=== PATIENT | female | born 1990 | race Caucasian/White ===

== ENCOUNTER 2023-02-24 15:58 | Outpatient (AMB) | payer OTHER, SELFPAY ==
--- NOTE | 2023-02-24 16:26 | AM.OFFWIN_ITS ---
Intake Vital Signs 02/24/23 16:33 Height 5 ft 6 in Weight 133 lb BMI 21.5 BP 132/80 Blood Pressure Location Rt brachial Position Sitting Pulse 111 H Pulse Source Pulse Oximeter Temp 97.9 F Temp Source Temporal Artery Scan Pulse Oximetry (%) 98 Intake Visit Reasons: EP Stepped on tack Intake Note: pt is here for c/o foot pain due to stepping on tack, states it has been over 10 years since she last had a tdap Patient Tobacco Use Status: Never used Tobacco Allergies No Known Allergies [No Known Allergies*] Allergy (Verified 02/24/23 16:46) Medication List - Last Reconciled 02/24/23 by Tyler Tucker MD No Known Home Meds Do you need a note to return to daycare/school/sports/work: Yes HPI EP Stepped on tack HPI Details 32-year-old female stepped on a dinora na il. Initially it bled but has since stopped. PFSH Social History Patient Tobacco Use Status: Never used Tobacco Physical Exam Vital Signs: Last Vital Signs Temp 97.9 F 02/24/23 16:33 Pulse 111 H 02/24/23 16:33 BP 132/80 02/24/23 16:33 Pulse Ox 98 02/24/23 16:33 BMI result Body Mass Index 21.5 Extrem Other: Right foot: Plantar surface: Puncture wound of the foot, nontender. Assessment & Plan Assessment & Plan (1) Puncture wound of foot: Code(s): S91.339A - Puncture wound without foreign body, unspecified foot, initial encounter Qualifiers: Encounter type: initial encounter Plan: Tetanus shot given. Reassurance. Coding Level of Care Code Est Pt Level 3 (33367) Diagnoses Puncture wound of foot S91.339A Encounter type: initial encounter
[2023-02-24 16:33] VITALS: BP 132/80; PULSE 111; TEMP 36.6; O2SAT 98; BMI 21.5
== END 2023-02-24 17:01 | disposition home or self-care (01) ==
PROVIDERS: PCP Internal Medicine; Visit Provider Internal Medicine
DX: S91.331A Puncture wound without foreign body, right foot, initial encounter (principal)
CPT/HCPCS: 90471; 90715; 99213

== ENCOUNTER 2024-03-15 10:20 | Outpatient (REF) | payer OTHER, SELFPAY ==
--- NOTE | ~2024-03-15 | XR_ITS ---
EXAMINATION: XR HAND LEFT 3 VIEWS CLINICAL INFORMATION: Pain in left hand M79.642. COMPARISON: None available TECHNIQUE: PA, lateral, and oblique views of the left hand. FINDINGS: No acute visible fracture or dislocation. Joint spaces and alignment are maintained. Soft tissues are unremarkable. XR/XR hand LT min 3V IMPRESSION: No acute visible fracture or dislocation. Electronically signed by: Kira Cespedes MD 05/25/2024 02:50 PM EST
--- NOTE | ~2024-03-15 | XR_ITS ---
EXAMINATION: XR HAND RIGHT 3 VIEWS CLINICAL INFORMATION: Pain in right hand M79.641. COMPARISON: None available TECHNIQUE: PA, lateral, and oblique views of the right hand. FINDINGS: No acute visible fracture or dislocation. Joint space alignment are maintained. Soft tissues are unremarkable XR/XR hand RT min 3V IMPRESSION: No acute visible fracture or dislocation. Electronically signed by: Kira Cespedes MD 05/25/2024 02:51 PM EST
== END 2024-03-15 10:21 | disposition home or self-care (01) ==
LOC: HO.HOSX 10:20
DX: M79.641 Pain in right hand (principal); M79.642 Pain in left hand
CPT/HCPCS: 73130

== ENCOUNTER 2024-03-15 14:56 | Outpatient (AMB) | payer OTHER, SELFPAY ==
--- NOTE | 2024-03-15 15:22 | A.OFFVIS_ITS ---
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 Patient has hx of EMG done on 05/21/2023. Right worse than left. 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 She expresses numbness and tingling in her bilateral fingers that radiates up to her elbow and neck. Occasional pain also shoots through all her fingers, mainly her 2nd, 3rd, and 4th. Some days her pain is so severe she says she is unable to move her wrist. She says she holds her fingers when she had these symptoms to attempt and relief them. She has tried a brace and says she has experienced her 3rd, 4th and 5th digits of the right hand cramp up and unable to straighten out. She was prescribed ibuprofen 600 mg and diclofenac topical gel however this offered no relief. She was put out of work by her job until she is cleared by a provider. 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 The patient also endorses intermittent numbness and tingling in her bilateral hands. Patient states that she thinks this affects all of her fingers, but she has not tested her small fingers specifically. The patient also reports that she has been experiencing some significant discomfort in her right elbow, and then she feels that the pain in her wrists and forearms bilaterally occasionally radiates into her neck. No other acute complaints or concerns at this time. [facility] Social History Patient Tobacco Use Status: Never used Tobacco Review of Systems Const All systems reviewed & are unremarkable except as noted in HPI and below Physical Exam Extrem Other: Neuro: Patient reports tingling in the median nerve distribution of bilateral hands at this time, but states that she does have sensation and is able to appreciate palpation to these areas No thenar or intrinsic wasting. Good APB muscle firing and good finger cross. Vascular: Capillary refill brisk. ROM: Patient can make a fist and extend all their digits. Pain with resisted flexion and resisted extension of bilateral wrists Skin: No lacerations or abrasions noted. General: No ecchymosis. No erythema or evidence of infection. Positive Cozen's and reverse Cozen's test on the right Tenderness to palpation of both medial and lateral epicondyles of the right elbow Results Reviewed Results Reviewed: X-rays obtained in the office today and independently reviewed by me, Reggie Yates PA-C, demonstrate no fracture or acute bony abnormality of bilateral hands and wrists. Assessment & Plan Assessment & Plan (1) De Quervain's disease (radial styloid tenosynovitis): Code(s): M65.4 - Radial styloid tenosynovitis [de Quervain] Category: Medical (2) Extensor carpi ulnaris tendinitis: Code(s): M77.8 - Other enthesopathies, not elsewhere classified Category: Medical (3) Medial epicondylitis of right elbow: Code(s): M77.01 - Medial epicondylitis, right elbow Category: Medical (4) Lateral epicondylitis of right elbow: Code(s): M77.11 - Lateral epicondylitis, right elbow Category: Medical (5) Numbness and tingling in both hands: Code(s): R20.0 - Anesthesia of skin; R20.2 - Paresthesia of skin Category: Medical Plan 1. Numbness and tingling of bilateral hands Symptoms intermittent, but daily, worse at night At this time, patient was referred for EMG and nerve conduction studyto assess the health of the nerves of bilateral upper extremities Patient is educated that, due to her experiencing symptoms in her neck, there is a chance that her symptoms are of a cervical spine pathology, and then if this is the case we would not be able to treat this, and we would instead refer her to a provider who can However, if the EMG and nerve conduction study do show carpal or cubital tunnel, we will discuss further treatment options after study Patient was amenable to this plan Patient will follow-up after EMG and nerve conduction study for results review and discussion of further treatment options if indicated 2. Extensor tendinitis of bilateral wrist 3. De Quervain tenosynovitis of right wrist Patient is educated about these conditions in the treatment options available, namely conservative measures or injections Patient would like to explore conservative management of these conditions prior to any injections or surgical intervention Patient is provided with bilateral Velcro wrist splints to be worn with daytime activities and primarily while at work, but is educated that she should remove them at home and while at rest to work on bilateral hand and wrist range of motion Patient is also referred to occupational hand therapy for range of motion and strengthening of bilateral hands and wrists Patient is amenable to this plan 4. Lateral epicondylitis of right elbow 5. Medial epicondylitis of right elbow Patient is educated about these conditions and the treatment options available Patient would like to proceed with occupational therapy Occupational therapy ordered at this time Patient is educated that lateral and medial epicondylitis can be a fairly long- term recovery even with occupational therapy, up to 2-3 months Patient understands this in his amenable to this plan Patient will follow-up after EMG and nerve conduction study for results review and discussion of further treatment options at that time, sooner with any acute concerns Orders: Orders XR hand RT min 3V Today M79.641 - Pain in right hand XR hand LT min 3V Today M79.642 - Pain in left hand NE nerve conduction velocity Today R20.0 - Anesthesia of skin, R20.2 - Paresthesia of skin OT Evaluation and Treatment Today M65.4 - Radial styloid tenosynovitis [de Quervain], M77.01 - Medial epicondylitis, right elbow, M77.11 - Lateral epicondylitis, right elbow, M77.8 - Other enthesopathies, not elsewhere classified NE electromyogram (EMG) Today R20.0 - Anesthesia of skin, R20.2 - Paresthesia of skin Coding Level of Care Code New Pt Level 4 (53952) Diagnoses De Quervain's disease (radial styloid tenosynovitis) M65.4 Extensor carpi ulnaris tendinitis M77.8 Medial epicondylitis of right elbow M77.01 Lateral epicondylitis of right elbow M77.11 Numbness and tingling in both hands R20.0; R20.2
== END 2024-03-15 16:15 | disposition home or self-care (01) ==
PROVIDERS: PCP Internal Medicine
DX: M65.4 Radial styloid tenosynovitis [de Quervain] (principal); M77.8 Other enthesopathies, not elsewhere classified; M77.01 Medial epicondylitis, right elbow; M77.11 Lateral epicondylitis, right elbow
CPT/HCPCS: 99204

== ENCOUNTER 2024-04-16 15:17 | Outpatient (REF) | payer OTHER, SELFPAY ==
--- NOTE | 2024-04-16 15:20 | EMG_ITS ---
Chief complaint: Bilateral hand numbness Reason for referral: Evaluate for Carpal Tunnel Syndrome Referred by: Reggie BOJORQUEZ Procedure done: Bilateral upper extremities NCS/EMG Precautions and/or limitations: None The limb temperature was monitored continuously and remained between 32-36 degrees C during the performance of the NCS. Nerve Conduction Studies Anti Sensory Summary Table ?Stim Site NR Onset (ms) Norm Onset (ms) Peak (ms) Norm Peak (ms) O-P Amp (?V) Norm O-P Amp Site1 Site2 Delta-0 (ms) Dist (cm) Marcelino (m/s) Norm Marcelino (m/s) Left Median Anti Sensory (2nd Digit) Wrist ? 2.1 2.9 <3.6 59.8 >10 Wrist 2nd Digit 2.1 14.0 67 Right Median Anti Sensory (2nd Digit) Wrist ? 2.2 2.9 <3.6 59.1 >10 Wrist 2nd Digit 2.2 14.0 64 Left Ulnar Anti Sensory (5th Digit) Wrist ? 2.2 2.8 <3.7 76.8 >15.0 Wrist 5th Digit 2.2 14.0 64 Right Ulnar Anti Sensory (5th Digit) Wrist ? 1.9 2.8 <3.7 66.8 >15.0 Wrist 5th Digit 1.9 14.0 74 Motor Summary Table ?Stim Site NR Onset (ms) Norm Onset (ms) O-P Amp (mV) Norm O-P Amp iAmp (mV) Amp (1st) (%) Site1 Site2 Delta-0 (ms) Dist (cm) Marcelino (m/s) Norm Marcelino (m/s) Left Median Motor (Abd Poll Brev) Wrist ? 2.6 <3.9 12.1 >4.5 14.8 100.0 Elbow Wrist 3.3 20.0 61 >45 Elbow ? 5.9 11.4 13.8 94.2 Right Median Motor (Abd Poll Brev) Wrist ? 2.3 <3.9 12.3 >4.5 13.8 100.0 Elbow Wrist 3.6 20.0 56 >45 Elbow ? 5.9 11.8 13.1 95.9 Left Ulnar Motor (Abd Dig Minimi) Wrist ? 2.2 <3.0 6.6 >5 7.6 100.0 B Elbow Wrist 2.9 19.0 66 >45 B Elbow ? 5.1 6.9 8.5 104.5 A Elbow B Elbow 1.3 10.0 77 >45 A Elbow ? 6.4 6.8 8.2 103.0 Right Ulnar Motor (Abd Dig Minimi) Wrist ? 2.3 <3.0 10.8 >5 12.1 100.0 B Elbow Wrist 2.9 19.0 66 >45 B Elbow ? 5.2 10.3 12.0 95.4 A Elbow B Elbow 1.2 10.0 83 >45 A Elbow ? 6.4 10.0 11.6 92.6 Comparison Summary Table ?Stim Site NR Peak (ms) Norm Peak (ms) P-T Amp (?V) Site1 Site2 Delta-P (ms) Norm Delta (ms) Right Median/Radial Dig I Comparison (Digit 1 - 10cm) Median ? 2.2 <2.9 71.5 Median Radial 0.2 Radial ? 2.4 <2.8 43.1 EMG ?Side Muscle Nerve Root Ins Act Fibs Psw Amp Dur Poly Recrt Int Pat Comment Right 1stDorInt Ulnar C8-T1 Nml Nml Nml Nml Nml 0 Nml Complete Right FlexCarRad Median C6-7 Nml Nml Nml Nml Nml 0 Nml Complete Right Biceps Musculocut C5-6 Nml Nml Nml Nml Nml 0 Nml Complete Right Triceps Radial C6-7-8 Nml Nml Nml Nml Nml 0 Nml Complete Right Deltoid Axillary C5-6 Nml Nml Nml Nml Nml 0 Nml Complete Left 1stDorInt Ulnar C8-T1 Nml Nml Nml Nml Nml 0 Nml Complete Left FlexCarRad Median C6-7 Nml Nml Nml Nml Nml 0 Nml Complete Left Biceps Musculocut C5-6 Nml Nml Nml Nml Nml 0 Nml Complete Left Triceps Radial C6-7-8 Nml Nml Nml Nml Nml 0 Nml Complete Left Deltoid Axillary C5-6 Nml Nml Nml Nml Nml 0 Nml Complete FINDINGS: All motor and sensory nerves tested showed normal latencies, amplitudes and conduction velocities. Concentric needle EMG was performed in selected muscles of the upper extremity. Study did not reveal signs of electric abnormalities as shown in the table above. IMPRESSION: 1. This is a normal study. 2. There is no electrodiagnostic evidence for median neuropathy, ulnar neuropathy, brachial plexopathy, or cervical radiculopathy. Thank you for your kind referral. Laura Mills MD, JEMIMA Board Certified, [place] Board [employer] and Rehabilitation (ABPMR) Board Certified, [place] Board of Electrodiagnostic Medicine (ABEM) CODIN [phone] MTDD
== END 2024-04-16 15:18 | disposition home or self-care (01) ==
LOC: HO.NEURO 15:17
DX: R20.0 Anesthesia of skin (principal); R20.2 Paresthesia of skin
CPT/HCPCS: 95886; 95911

== ENCOUNTER → 2024-04-16 15:20 | Outpatient (BNV) | payer OTHER, SELFPAY | PROVIDERS: Visit Provider Physical Medicine & Rehabilitation | DX: R20.0 Anesthesia of skin (principal); R20.2 Paresthesia of skin | CPT/HCPCS: 95886; 95911 ==

== ENCOUNTER 2024-04-30 15:08 | Outpatient (AMB) | payer OTHER, SELFPAY ==
--- NOTE | 2024-04-30 15:08 | A.OFFVIS_ITS ---
Intake Visit Reasons: EMG/NC study review of B/L hands Intake Note: Leila is a 34 year old right hand dominant female who presents today via telephone for her telehealth visit for an EMG review of her bilateral hands. EMG done on 04/16/2024. Allergies No Known Allergies [No Known Allergies*] Allergy (Verified 04/30/24 15:09) HPI HPI EMG/NC study review of B/L hands: Details: Patient is a 34-year-old female who presents for telehealth visit for EMG and nerve conduction study review of bilateral hands. The patient does state that her numbness and tingling has continued, but has lessened in intensity since previous evaluation. The patient states that when it comes to her bilateral epicondylitis, she has not been able to schedule an appointment with occupational therapy as of yet, and her symptoms have remained consistent. No other acute complaints or concerns at this time. PENDING SALE TO [facility] Social History (Updated 04/30/24 @ 15:09 by KENDRA Stewart) Alcohol intake: never Patient Tobacco Use Status: Never used Tobacco Current occupational status: employed Current occupation: [employer] Results Reviewed Results Reviewed: EMG performed by Dr. Anderson is negative in bilateral hands Assessment & Plan Assessment & Plan (1) Numbness and tingling in both hands: Code(s): R20.0 - Anesthesia of skin; R20.2 - Paresthesia of skin Category: Medical (2) Medial epicondylitis of right elbow: Code(s): M77.01 - Medial epicondylitis, right elbow Category: Medical (3) Lateral epicondylitis of right elbow: Code(s): M77.11 - Lateral epicondylitis, right elbow Category: Medical Plan 1. Numbness and tingling in bilateral hands Symptoms intermittent, daily, worse at night Patient is educated that if she is continuing to experience numbness and tingl ing in 6 months, we can order a repeat EMG Patient was amenable to this plan 2. Lateral and medial epicondylitis of right elbows Patient is educated that if she would like, we can fax an order to a different occupational therapy clinic that can accommodate Her schedule patient states that she will call around to see if any of offices can accommodate her work schedule in terms of getting OT scheduled Patient states she will call our office with the fax number of this office if and when she finds when to have the order faxed over Coding Level of Care Code Tele Est Pt Level 3 (30476) Diagnoses Numbness and tingling in both hands R20.0; R20.2 Medial epicondylitis of right elbow M77.01 Lateral epicondylitis of right elbow M77.11
== END 2024-04-30 15:18 | disposition home or self-care (01) ==
LOC: HO.HOS 15:08
DX: R20.0 Anesthesia of skin (principal); R20.2 Paresthesia of skin; M77.01 Medial epicondylitis, right elbow; M77.11 Lateral epicondylitis, right elbow
CPT/HCPCS: 99213